=== PATIENT | female | born 1970 | race Caucasian/White ===

== ENCOUNTER 2017-10-12 08:25 | Emergency (ER) | payer BC ==
[2017-10-12 08:33] VITALS: BMI 23.1
[2017-10-12] MEDS ORDERED: SODIUM CHLORIDE 1,000 ML IV STA ×2 (08:50→11:41)
[2017-10-12] MEDS ORDERED: ONDANSETRON 4 MG/2 ML VIAL IVPUSH ONE (08:50)
[2017-10-12] MEDS ORDERED: ONDANSETRON 4 MG/2 ML VIAL ONE (08:58)
--- NOTE | 2017-10-12 09:09 | PDOC ---
History of Present Illness - General Chief Complaint: Pain, Acute Stated Complaint: ABD PAIN Time Seen by Provider: 10/12/17 08:43 History Source: Patient Exam Limitations: No Limitations - History of Present Illness Initial Comments: 10/12/17 08:53 Patient is a 47F with history of Factor 5 Leiden and chronic migraines here today complaining of diarrhea and abdominal pain for the past 48 hours after returning from [facility]. Patient stayed [place] a resort and has been vaccinated for HAV and typhoid. She denies blood in stool and vomiting, endorses nausea. The abdominal pain is diffuse and crampy. Patient denies fevers, chills, and pain with urination. Past History - Past Medical History Allergies/Adverse Reactions: Allergies Allergy/AdvReac Type Severity Reaction Status Date / Time No Known Allergies Allergy Verified 10/12/17 08:29 Home Medications: Ambulatory Orders Aspirin [ASA -] 81 mg PO DAILY 03/06/15 Botulinum Toxin A [Botox (Nf)] 0 units IM ASDIR 03/06/15 Celecoxib [Celebrex] 100 mg PO PRN 03/06/15 Ciprofloxacin [Cipro (Restricted To Id)] 500 mg PO BID #10 tablet 10/12/17 COPD: No Other medical history: CHRONIC MIGRANES - Immunization History Immunization Up to Date: Yes - Suicide/Smoking/Psychosocial Hx Smoking History: Never smoked Hx Alcohol Use: No Drug/Substance Use Hx: No Substance Use Type: None Review of Systems - Review of Systems Comments:: 10/12/17 09:09 GENERAL/CONSTITUTIONAL: No fever or chills. No weakness. HEAD, EYES, EARS, NOSE AND THROAT: No change in vision. No sore throat. CARDIOVASCULAR: No chest pain or shortness of breath RESPIRATORY: No cough, wheezing, or hemoptysis. GASTROINTESTINAL: Positive for nausea. Negative for vomiting. Positive for diarrhea GENITOURINARY: No dysuria, frequency, or change in urination. MUSCULOSKELETAL: No joint or muscle swelling or pain. No neck or back pain. SKIN: No rash NEUROLOGIC: Positive for headache. Negative for vertigo, loss of consciousness, or change in strength/sensation. ENDOCRINE: No increased thirst. No abnormal weight change ALLERGIC/IMMUNOLOGIC: No hives or skin allergy. *Physical Exam - Vital Signs Last Vital Signs Temp Pulse Resp BP Pulse Ox 99.3 F 101 H 18 102/65 95 10/12/17 08:29 10/12/17 08:29 10/12/17 08:29 10/12/17 08:29 10/12/17 08:29 - Physical Exam Comments: 10/12/17 09:10 GENERAL: Awake, alert, and fully oriented, in no acute distress HEAD: No signs of trauma, normocephalic, atraumatic EYES: PERRLA, EOMI, sclera anicteric, conjunctiva clear ENT: Auricles normal inspection, hearing grossly normal, nares patent, oropharynx clear without exudates. Moist mucosa NECK: Normal ROM, supple, no lymphadenopathy, JVD, or masses LUNGS: No distress, speaks full sentences, clear to auscultation bilaterally HEART: Tachycardic and regular, normal S1 and S2, no murmurs, rubs or gallops, peripheral pulses normal and equal bilaterally. ABDOMEN: Soft, diffusely tender without guarding/rebound. No masses EXTREMITIES: Normal inspection, Normal range of motion, no edema. No clubbing or cyanosis. NEUROLOGICAL: Cranial nerves II through XII grossly intact. Normal speech, no focal sensorimotor deficits SKIN: Warm, Dry, normal turgor, no rashes or lesions noted. ED Treatment Course - LABORATORY CBC & Chemistry Diagram: 10/12/17 09:15 10/12/17 09:15 - RADIOLOGY Radiology Studies Ordered: Category Date Time Status ABDOMEN & PELVIS CT WITH CONTR [CT] Stat CT Scan 10/12/17 08:51 Ordered Medical Decision Making - Medical Decision Making 10/12/17 09:11 Patient is a 47F with history of F5 Leiden and chronic migraines here today with abdominal pain and diarrhea. Vital signs notable for mild tachycardia. Exam shows diffuse tenderness in abdomen. DDx includes, but is not limited to infectious diarrhea secondary to viral or bacteria etiology, pancreatitis, UTI, appendcitis, cholecystitis. Will workup with cbc, cmp, lipase, ua, upreg, ct abdomen/pelvis. Will treat with fluids and zofran. 10/12/17 10:07 Laboratory Tests 10/12/17 10/12/17 10/12/17 09:15 09:15 09:15 WBC 9.4 Hgb 13.4 Hct 39.2 Plt Count 187 Creatinine 0.8 Lipase 198 Urine Nitrite Negative Ur Leukocyte Esterase Negative Urine WBC (Auto) 4 Urine HCG, Qual Negative CBC normal. Cr normal. UA negative. CT pending. 10/12/17 18:53 CT shows colitis. Treated with outpatient with cipro. Return precautions given. Instructions to follow up given. Discharged. *DC/Admit/Observation/Transfer Diagnosis at time of Disposition: Colitis - Discharge Dispostion Disposition: HOME Condition at time of disposition: Good Admit: No - Prescriptions Prescriptions: Ciprofloxacin [Cipro (Restricted To Id)] 500 mg PO BID #10 tablet - Referrals - Patient Instructions Printed Discharge Instructions: DI for Colitis Additional Instructions: Please return if you have any new, worsening or concerning symptoms. Please follow up with your primary care doctor in 5 days or less. You've been prescribed an antibiotic. Please complete the course of antibiotics even if you start feeling better. - Post Discharge Activity
[2017-10-12 09:28] LABS: BASO % 0.4 % (0-2.0); HEMATOCRIT 39.2 % (32.4-45.2); HEMOGLOBIN 13.4 GM/dL (10.7-15.3); LYMPH % 8.4 % (8-40); MCH 29.8 pg (25.7-33.7); MCHC 34.2 g/dl (32.0-36.0); MEAN CELL VOLUME 87.3 fl (80-96); MEAN PLT VOLUME 9.2 fl (7.5-11.1); MONO % 5.2 % (3.8-10.2); PLATELET COUNT 187 K/MM3 (134-434); RDW 12.6 % (11.6-15.6); WHITE BLOOD COUNT 9.4 K/mm3 (4.0-10.0)
[2017-10-12 09:37] LABS: HCG,QUALITATIVE URINE NEGATIVE; URINE APPEARANCE SLCLOUDY; URINE BILIRUBIN NEGATIVE (<2.0 mg/dL); URINE COLOR DKYELLOW; URINE GLUCOSE (UA) NEGATIVE (NEGATIVE); URINE KETONE NEGATIVE (NEGATIVE); URINE LEUK ESTERASE NEGATIVE (NEGATIVE); URINE NITRITE NEGATIVE (NEGATIVE); URINE PROTEIN NEGATIVE (NEGATIVE); URINE UROBILINOGEN NEGATIVE mg/dL (0.2-1.0)
[2017-10-12 09:40] LABS: EPI CELLS FEW /HPF (FEW); URINE MUCUS MANY
[2017-10-12 09:54] LABS: ALBUMIN 3.6 g/dl (3.4-5.0); ALK PHOS 47 U/L (45-117); ANION GAP 4 (8-16); BILIRUBIN,DIRECT < 0.2 mg/dL (0.0-0.2); BILIRUBIN,TOTAL 0.4 mg/dL (0.2-1.0); BLOOD UREA NITROGEN 9 mg/dL (7-18); CALCIUM 8.5 mg/dL (8.5-10.1); CHLORIDE 103 mmol/L (98-107); CO2 31 mmol/L (21-32); CREATININE 0.8 mg/dL (0.55-1.02); GLUCOSE,RANDOM 103 mg/dL (74-106); LIPASE 198 U/L (73-393); POTASSIUM 3.8 mmol/L (3.5-5.1); SGOT/AST 25 U/L (15-37); SGPT/ALT 33 U/L (12-78); SODIUM 138 mmol/L (136-145); TOT PROT 6.9 g/dl (6.4-8.2); URIC ACID 4.4 mg/dL (2.6-7.2)
--- NOTE | 2017-10-12 10:12 | PDOC ---
Attending Attestation - Resident Resident Name: Jovani Luis - ED Attending Attestation I have performed the following: I have examined & evaluated the patient, The case was reviewed & discussed with the resident, I agree w/resident's findings & plan - HPI HPI: 10/12/17 10:09 Healthy 47-year-old female presents with 1 day of watery diarrhea and abdominal cramping after recently returning from a trip to [place]. No other recent antibiotics, no known direct sick contacts, hepatitis A vaccinated prior to her trip. Has had normal colonoscopies in the past, no history of recurring GI infections. - Physicial Exam PE: 10/12/17 10:10 Vital signs normal, slight tachycardia noted Dry mucosa Abdomen is soft and nondistended, diffuse tenderness with some guarding on the right mid abdomen, no rebound. Bowel sounds are normal to increased. - Medical Decision Making 10/12/17 10:10 Patient seen and evaluated with the resident. I agree with the overall evaluation, assessment, and management with the following summary of visit: Healthy 47-year-old female with likely traveler's diarrhea, probable superimposed colitis. Hemodynamically stable. Labs, urinalysis IV fluids CT of the abdomen and pelvis Expect discharge with antibiotics
[2017-10-12] MEDS ORDERED: CIPROFLOXACIN 500 MG TABLET (RESTRICTED TO ID) PO ONE (11:06)
[2017-10-12 11:51] VITALS: TEMP 98
[2017-10-12 12:50] VITALS: BP 119/68; PULSE 90
== END 2017-10-12 12:49 | disposition home or self-care (01) ==
LOC: JER 08:25
PROC: 3E0337Z Introduction of Electrolytic and Water Balance Substance into Peripheral Vein, Percutaneous Approach (ICD-10-PCS; principal; 2017-10-12)
PROC: 3E033GC Introduction of Other Therapeutic Substance into Peripheral Vein, Percutaneous Approach (ICD-10-PCS; 2017-10-12)
DX: K52.9 Noninfective gastroenteritis and colitis, unspecified (principal); D68.51 Activated protein C resistance; G43.909 Migraine, unspecified, not intractable, without status migrainosus
CPT/HCPCS: 36415; 74177-TC; 80053; 80076; 81003; 81015; 83690; 84550; 84703; 85025; 99283-25; J7030

== ENCOUNTER 2024-01-17 18:28 | Emergency (ER) | payer BC ==
[2024-01-17 18:39] VITALS: BP 123/78; PULSE 75; RESP 18; TEMP 98.4; BMI 24.6
[2024-01-17] MEDS ORDERED: AMOX TR/POT CLAV 875MG/125MG TABLETS (FP) ONE (19:24)
[2024-01-17] MEDS ORDERED: NAPROXEN 500 MG TABLET ONE (19:24)
[2024-01-17] MEDS ORDERED: DIPHTH,PERTUSS(ACELL),TET 0.5 ML DISP.SYRIN IM ONE (19:24)
[2024-01-17] MEDS: DIPHTH,PERTUSS(ACELL),TET 0.5 ML DISP.SYRIN IM ONE (19:30)
[2024-01-17] MEDS: NAPROXEN 500 MG TABLET PO ONE (19:30)
[2024-01-17] MEDS: AMOX TR/POT CLAV 875MG/125MG TABLETS (FP) PO ONE (19:30)
== END 2024-01-17 19:39 | disposition home or self-care (01) ==
LOC: JERFT 18:28
PROC: 3E0234Z Introduction of Serum, Toxoid and Vaccine into Muscle, Percutaneous Approach (ICD-10-PCS; principal; 2024-01-17)
DX: S81.852A Open bite, left lower leg, initial encounter (principal); W55.01XA Bitten by cat, initial encounter; Z23 Encounter for immunization
CPT/HCPCS: 90715; 99283-25

== ENCOUNTER 2024-01-22 13:53 | Emergency (ER) | payer BC ==
[2024-01-22 13:59] VITALS: BP 121/74; PULSE 73; RESP 18; TEMP 98.9; BMI 24.6
[2024-01-22] MEDS ORDERED: TAMSULOSIN HCL 0.4 MG CAP PO ONE (16:15)
== END 2024-01-22 16:08 | disposition home or self-care (01) ==
LOC: JERFT 13:53
PROC: 0H9LXZZ Drainage of Left Lower Leg Skin, External Approach (ICD-10-PCS; principal; 2024-01-22)
DX: L02.416 Cutaneous abscess of left lower limb (principal); W55.01XA Bitten by cat, initial encounter
CPT/HCPCS: 99283-25

== ENCOUNTER 2024-01-25 02:51 | Emergency (ER) | payer BC ==
[2024-01-25 02:59] VITALS: BP 101/79; PULSE 67; RESP 20; TEMP 97.7; BMI 24.6
[2024-01-25 04:07] LABS: BASO % 1.1 % (0-2.0); EOS % 3.4 % (0-4.5); HEMATOCRIT 40.7 % (32.4-45.2); HEMOGLOBIN 13.8 GM/dL (10.7-15.3); LYMPH % 45.3 % (8-40); MCH 28.7 pg (25.7-33.7); MCHC 33.9 g/dl (32.0-36.0); MEAN CELL VOLUME 84.6 fl (80-96); MEAN PLT VOLUME 8.9 fl (7.5-11.1); MONO % 9.7 % (3.8-10.2); NEUT % 40.5 % (42.8-82.8); PLATELET COUNT 253 10^3/uL (134-434); RBC 4.81 M/mm3 (3.60-5.2); RDW 12.6 % (11.6-15.6); WHITE BLOOD COUNT 4.3 K/mm3 (4.0-10.0)
[2024-01-25 04:25] LABS: POTASSIUM 4.6 mmol/L (3.5-5.1)
[2024-01-25 04:27] LABS: ALBUMIN 3.8 g/dl (3.4-5.0); BLOOD UREA NITROGEN 17.9 mg/dL (7-18); CALCIUM 9.7 mg/dL (8.5-10.1)
[2024-01-25 04:30] LABS: CREATININE 0.7 mg/dL (0.55-1.3)
[2024-01-25 04:32] LABS: BILIRUBIN,TOTAL 0.2 mg/dL (0.2-1); TOT PROT 7.2 g/dl (6.4-8.2)
== END 2024-01-25 04:50 | disposition home or self-care (01) ==
LOC: JER 02:51
DX: R07.9 Chest pain, unspecified (principal); R42 Dizziness and giddiness
CPT/HCPCS: 36415; 80053; 84484; 85025; 93005; 93010; 99284-25